=== PATIENT | female | born 1970 | race African-American/Black ===

== ENCOUNTER 2017-12-09 08:23 | Emergency (ER) | payer MEDICAID, OTHER ==
[~2017-12-09] VITALS: Ht 172.7 cm; Wt 54.0 kg
[~2017-12-09 08:23] MED LIST: DIPH1TAB; NITR100C PO; PROM25VI
[2017-12-09 10:22] VITALS: BP 125/76
[2017-12-09] MEDS: IBUPROFEN 600MG TABLET PO ONE (10:45)
== END 2017-12-09 10:51 | disposition home or self-care (01) ==
LOC: ER 08:47
DX: L98.8 Other specified disorders of the skin and subcutaneous tissue (principal); Z88.2 Allergy status to sulfonamides; Z90.710 Acquired absence of both cervix and uterus
CPT/HCPCS: 99283

== ENCOUNTER 2018-05-20 07:36 | Emergency (ER) | payer MEDICAID ==
[~2018-05-20] VITALS: Ht 172.7 cm; Wt 53.0 kg
[2018-05-20] MEDS ORDERED: KETOROLAC 15MG/ML VIAL IM ONE (08:15)
[2018-05-20] MEDS ORDERED: ACETAMINOPHEN 500MG TABLET PO ONE (08:15)
[2018-05-20 09:30] VITALS: BP 103/62
== END 2018-05-20 09:33 | disposition home or self-care (01) ==
LOC: ER 07:36
DX: M54.2 Cervicalgia (principal); F17.200 Nicotine dependence, unspecified, uncomplicated; Z88.2 Allergy status to sulfonamides
CPT/HCPCS: 96372; 99283; J1885